=== PATIENT | female | born 1975 | race Caucasian/White ===

== ENCOUNTER 2018-02-05 21:27 | Emergency (ER) | payer MEDICARE, OTHER ==
[2018-02-05 21:38] VITALS: RESP 16; TEMP 98.8
--- NOTE | 2018-02-05 21:40 | ED ---
Abdominal Pain HPI - General Chief Complaint: Abdominal Pain Stated Complaint: constipated Time Seen by Provider: 02/05/18 21:39 Source: patient Mode of arrival: ambulatory Limitations: no limitations - History of Present Illness Initial Comments: Laura Hoffman is a 42-year-old female with a history of narcotic abuse who presents the emergency department today for evaluation of constipation. Patient reports that she has not had a normal bowel movement in 16 days, she reports that today they she was able to pass a very small firm stool but it caused a lot of discomfort. She was evaluated by nursing staff at the rehab facility where she is currently residing and was told that she didn't have any bowel sounds and needed to come to the emergency department. She reports that she is currently on methadone, she does not take any stool softeners or fiber supplements. She suffered with intermittent constipation for a number of years which is associated with her narcotic abuse. - Related Data Home Medications Medication Instructions Recorded Confirmed Acetaminophen Tab [Tylenol Tab] 650 mg PO Q4H PRN 02/05/18 02/05/18 Amitriptyline HCl [Elavil] 25 mg PO HS@22002/05/18 02/05/18 Benztropine Mesylate [Cogentin] 1 mg PO BID@0600,1730 02/05/18 02/05/18 Calcium/Magnesium(Unknown Dose 1 tab PO TID PRN 02/05/18 02/05/18 Chlorpheniramine Maleate 4 mg PO Q4H PRN 02/05/18 02/05/18 [Chlor-Trimeton] Clindamycin HCl [Cleocin] 150 mg PO TID@0600,1530,2200 02/05/18 02/05/18 Ibuprofen [Motrin] 600 mg PO Q6H PRN 02/05/18 02/05/18 [place] Carbonate 300 mg PO TID@0600,1500,2200 02/05/18 02/05/18 Lurasidone [Latuda] 20 mg PO DAILY@1730 02/05/18 02/05/18 Multivitamins, Thera [Multivitamin 1 tab PO DAILY 02/05/18 02/05/18 (formulary)] Thiamine [Vitamin B-1] 100 mg PO DAILY 02/05/18 02/05/18 Previous Rx's Medication Instructions Recorded Bisacodyl [Dulcolax] 5 mg PO DAILY #30 tablet. 02/06/18 Allergies Allergy/AdvReac Type Severity Reaction Status Date / Time amoxicillin Allergy Rash/Hives Verified 02/05/18 21:50 cephalexin [From Keflex] Allergy Chest Pain Verified 02/05/18 21:50 divalproex sodium Allergy Swelling Verified 02/05/18 21:50 [From Depakote] Penicillins Allergy Rash/Hives Verified 02/05/18 21:50 Sulfa (Sulfonamide Allergy Chest Pain Verified 02/05/18 21:50 Antibiotics) Review of Systems ROS Statement: Those systems with pertinent positive or pertinent negative responses have been documented in the HPI. ROS Other: All systems not noted in ROS Statement are negative. Past Medical History Additional Past Medical History / Comment(s): hypotension. History of Any Multi-Drug Resistant Organisms: None Reported Past Surgical History: Uterine Ablation Additional Past Surgical History / Comment(s): L5-S1 fusion. Past Psychological History: Bipolar, PTSD Smoking Status: Current every day smoker Past Alcohol Use History: Occasional Past Drug Use History: None Reported General Exam Limitations: no limitations Course Vital Signs 02/05/18 02/06/18 21:32 00:30 Temperature 98.8 F Pulse Rate 77 66 Respiratory 16 16 Rate Blood Pressure 109/73 111/69 O2 Sat by Pulse 99 96 Oximetry - Reevaluation(s) Reevaluation #1: Patient was noted to have a large bowel movement 02/05/18 23:23 Medical Decision Making - Medical Decision Making Patient on chronic narcotics presents with constipation, reports small firm BM today but no relief of pressure, states she feels like her abdomen is distended and she looks . States that she was evaluated at [facility] and told that she had "no bowel sounds" Physical exam unremarkable XRay ordered Patient requesting something for pain to relieve the rectal discomfort from straining to have a BM Xray with significant stool burden, slight concern for early SBO however patient doesnt have tenderness/Nausea or vomiting Patient had large BM x3 in the ER, reprots feeling better, would like a stool softener to help her have more BM. Is agreeable to plan for discharge back to [facility] at this time. - Lab Data Lab Results 02/05/18 02/05/18 Range/Units 23:10 23:10 Urine Color Yellow Urine Appearance Clear (Clear) Urine pH 8.0 (5.0-8.0) Ur Specific [place] 1.008 (1.001-1.035) Urine Protein Negative (Negative) Urine Glucose (UA) Negative (Negative) Urine Ketones Negative (Negative) Urine Blood Negative (Negative) Urine Nitrite Negative (Negative) Urine Bilirubin Negative (Negative) Urine Urobilinogen <2.0 (<2.0) mg/dL Ur Leukocyte Esterase Small H (Negative) Urine RBC 2 (0-5) /hpf Urine WBC 8 H (0-5) /hpf Ur Squamous Epith Cells 1 (0-4) /hpf Urine Bacteria Rare H (None) /hpf Urine Mucus Rare H (None) /hpf Urine HCG, Qual Not Detected (Not Detectd) Disposition Clinical Impression: Constipation, Narcotic bowel syndrome Disposition: HOME SELF-CARE Condition: Good Instructions: Constipation (DC) Prescriptions: Bisacodyl [Dulcolax] 5 mg PO DAILY #30 tablet.dr Is patient prescribed a controlled substance at d/c from ED?: No Referrals: None,Stated [Primary Care Provider] - 1-2 days
--- NOTE | 2018-02-05 23:38 | XR ---
EXAM: XR Abdomen, 2 Views-upright CLINICAL HISTORY: Reason: Pain, no BM x16 days TECHNIQUE: Frontal views of the abdomen/pelvis-upright COMPARISON: None available FINDINGS: Intraperitoneal space: No evidence of pneumoperitoneum. Gastrointestinal tract: Mild gaseous distention of small bowel with multiple air-fluid levels on erect examination. Large amount of stool in the left colon to level of rectosigmoid. Organs: Surgical clips in the right upper quadrant suggesting previous cholecystectomy. Bones/joints: Postsurgical changes involving lumbosacral spine. Other findings: No abnormal abdominal-pelvic calcifications. IMPRESSION: Gaseous distention of small bowel with multiple fluid levels raising possibility of early or partial small bowel obstruction. No evidence of pneumoperitoneum. Abundant stool in the left colon and rectosigmoid.
[2018-02-05 23:48] LABS: Appearance,Urine Clear (Clear); Bacteria,Urine Rare /hpf; Bilirubin,Urine Negative (Negative); Blood,Urine Negative (Negative); Color,Urine Yellow; Glucose,Urine (UA) Negative (Negative); Ketones,Urine Negative (Negative); Leukocyte Esterase,Urine Small (Negative); Mucus,Urine Rare /hpf; Nitrite,Urine Negative (Negative); Protein,Urine Negative (Negative); RBC,Urine 2 /hpf (0-5); Specific Gravity,Urine 1.008 (1.001-1.035); Squamous Epithelial Cell,Urine 1 /hpf (0-4); Urobilinogen,Urine <2.0 mg/dL (<2.0); WBC,Urine 8 /hpf (0-5)
[2018-02-06] MEDS ORDERED: BISACODYL 5 MG TABLET.DR PO STA (00:08)
[2018-02-06 00:32] VITALS: BP 111/69; PULSE 66
== END 2018-02-06 00:30 | disposition home or self-care (01) ==
LOC: EC 21:27
DX: K59.00 Constipation, unspecified (principal); K63.89 Other specified diseases of intestine; F17.200 Nicotine dependence, unspecified, uncomplicated; Z98.1 Arthrodesis status; Z88.0 Allergy status to penicillin; Z88.1 Allergy status to other antibiotic agents; Z88.2 Allergy status to sulfonamides; Z88.8 Allergy status to other drugs, medicaments and biological substances; Z79.891 Long term (current) use of opiate analgesic; Z79.899 Other long term (current) drug therapy
CPT/HCPCS: 74018; 81001; 81025; 99284